=== PATIENT | male | born 1930 | race African-American/Black ===

== ENCOUNTER 2017-06-08 11:43 | Inpatient (IN) | payer MEDICARE, MEDICAID ==
[~2017-06-08] VITALS: Ht 182.9 cm; Wt 108.9 kg
[2017-06-08 14:47] LABS: HEMATOCRIT. 26.1 % (42.0-52.0); HEMOGLOBIN. 8.4 g/dL (14.0-18.0); MEAN CORPUSCULAR HEMOGLOBIN 28.9 pg (28.0-32.0); MEAN CORPUSCULAR VOLUME 90.3 fL (80.0-94.0); MEAN PLATELET VOLUME 9.1 fl (7.4-10.4); PLATELET 188 x1000/uL (130-400); RED BLOOD CELL COUNT 2.89 mill/uL (4.7-6.1)
[2017-06-08 14:55] LABS: CHLORIDE 111 mEq/L (98-107); INR 1.1; PROTHROMBIN TIME 11.9 sec (9.4-11.6)
[2017-06-08 15:01] LABS: CARBON DIOXIDE 21 mEq/L (21-32)
[2017-06-08 15:03] LABS: TROPONIN I 0.36 ng/mL (0.00-0.04)
[2017-06-08 15:53] LABS: PLATELET ESTIMATE NORMAL
[2017-06-08] MEDS ORDERED: FUROSEMIDE 40MG/4ML VIAL IVP ONE (16:00)
[2017-06-08] MEDS ORDERED: ASPIRIN 81MG TABLET PO ONE (16:00)
[2017-06-08] MEDS ORDERED: IPRATROPIUM/ALBUTEROL 0.5-3(2.5)MG/3ML NEB INH PRN (18:00)
[2017-06-08] MEDS ORDERED: LORAZEPAM 0.5MG TABLET PO PRN (18:00)
[2017-06-08] MEDS ORDERED: ONDANSETRON HCL 4MG/2ML VIAL IV PRN (18:00)
[2017-06-08] MEDS ORDERED: CLONIDINE 0.1MG TABLET PO PRN (18:00)
[2017-06-08] MEDS ORDERED: ACETAMINOPHEN 325MG TABLET PO PRN (18:00)
[2017-06-08] MEDS ORDERED: DOCUSATE SODIUM 100MG CAPSULE PO PRN (18:00)
[2017-06-08 20:45] VITALS: BP 155/83
[2017-06-08 22:45] LABS: CLARITY URINE CLEAR (CLEAR); COLOR URINE YELLOW (YELLOW); GLUCOSE URINE NEGATIVE (NEGATIVE); KETONES URINE NEGATIVE (NEGATIVE); LEUKOCYTE ESTERASE URINE NEGATIVE (NEGATIVE); NITRITE URINE NEGATIVE (NEGATIVE); OCCULT BLOOD URINE TRACE (NEGATIVE); PROTEIN URINE NEGATIVE (NEGATIVE); UROBILINOGEN URINE 0.2 E.U./dL (0.2-1.0)
[2017-06-08 22:56] LABS: *AMPHETAMINES SCREEN URINE NEGATIVE (NEGATIVE); *BARBITURATES SCREEN URINE NEGATIVE (NEGATIVE); *BENZODIAZEPINES SCREEN URINE NEGATIVE (NEGATIVE); *COCAINE SCREEN URINE NEGATIVE (NEGATIVE); CANNABINOID URINE SCREEN NEGATIVE (NEGATIVE); METHADONE URINE SCREEN NEGATIVE (NEGATIVE); OPIATES URINE SCREEN NEGATIVE (NEGATIVE); PHENCYCLIDINE URINE SCREEN NEGATIVE (NEGATIVE)
[2017-06-08 23:38] LABS: CREATINE KINASE MB FRACTION 5.1 ng/mL (0.5-3.6); TROPONIN I 0.35 ng/mL (0.00-0.04)
[2017-06-09] VITALS (7 sets, daily range): BP systolic 116–147; BP diastolic 60–79
[2017-06-09] MEDS: METHYLPREDNISOLONE SOD SUCC 125 MG/2 ML VIAL IV SCH ×4 (00:12→21:15)
[2017-06-09] MEDS: PIPERACILLIN/TAZ 2.25G PREMIX 50 ML IV SCH ×3 (00:12→13:53)
[2017-06-09] MEDS: ENOXAPARIN 40MG/0.4ML SYR SUBCUT SCH ×2 (09:00→09:40)
[2017-06-09] MEDS: FUROSEMIDE 40MG/4ML VIAL IVP SCH (09:40)
[2017-06-09 11:32] LABS: HEMATOCRIT. 27.8 % (42.0-52.0); HEMOGLOBIN. 9.1 g/dL (14.0-18.0); MEAN CORPUSCULAR HEMOGLOBIN 29.3 pg (28.0-32.0); MEAN CORPUSCULAR VOLUME 89.5 fL (80.0-94.0); MEAN PLATELET VOLUME 9.8 fl (7.4-10.4); PLATELET 200 x1000/uL (130-400); RED BLOOD CELL COUNT 3.11 mill/uL (4.7-6.1)
[2017-06-09 12:05] LABS: CARBON DIOXIDE 20 mEq/L (21-32); CHLORIDE 109 mEq/L (98-107); CREATINE KINASE 393 IU/L (39-308); CREATINE KINASE MB FRACTION 4.7 ng/mL (0.5-3.6); LDL CHOLESTEROL 41 mg/dL (5-100); T4 FREE 1.44 ng/dL (0.76-1.46)
[2017-06-09 12:06] LABS: HDL CHOLESTEROL 27 mg/dL (40-59)
[2017-06-09] MEDS: LOSARTAN POTASSIUM 25 MG TABLET PO SCH (13:53)
[2017-06-09 16:38] LABS: PLATELET ESTIMATE NORMAL
[2017-06-09] MEDS: CARVEDILOL 3.125 MG TABLET PO SCH (21:15)
[2017-06-09] MEDS: PIPERACILLIN/TAZ 3.375G PREMIX 50 ML IV SCH (21:15)
[2017-06-10 00:19] VITALS: BP_SYST 135; BP_SYST 91; BP_DIAS 49; BP_DIAS 73
[2017-06-10 04:00] VITALS: BP 134/73
[2017-06-10] MEDS: METHYLPREDNISOLONE SOD SUCC 125 MG/2 ML VIAL IV SCH ×2 (05:26→14:30)
[2017-06-10] MEDS: PIPERACILLIN/TAZ 3.375G PREMIX 50 ML IV SCH ×3 (05:26→21:36)
[2017-06-10 08:00] VITALS: BP 135/53
[2017-06-10] MEDS: LOSARTAN POTASSIUM 25 MG TABLET PO SCH (08:39)
[2017-06-10] MEDS: ALLOPURINOL 300 MG TABLET PO SCH (08:39)
[2017-06-10] MEDS: ASPIRIN 81MG TABLET PO SCH (08:39)
[2017-06-10] MEDS: CARVEDILOL 3.125 MG TABLET PO SCH ×2 (08:39→21:35)
[2017-06-10] MEDS: FUROSEMIDE 40MG/4ML VIAL IVP SCH (08:39)
[2017-06-10] MEDS: ENOXAPARIN 40MG/0.4ML SYR SUBCUT SCH (08:40)
[2017-06-10] MEDS: CLOPIDOGREL 75MG TABLET PO SCH (12:08)
[2017-06-10 16:00] VITALS: BP 142/78
[2017-06-10 20:00] VITALS: BP 141/88
[2017-06-10] MEDS: ATORVASTATIN CALCIUM 40MG TABLET PO SCH (21:35)
[2017-06-10] MEDS: METHYLPREDNISOLONE SOD SUCC 40 MG/ML VIAL IV SCH (21:36)
[2017-06-10] MEDS: DICLOFENAC SODIUM 50MG EC TABLET PO SCH (21:37)
[2017-06-11] VITALS: BP 140/72
[2017-06-11 04:00] VITALS: BP 153/66
[2017-06-11] MEDS: PIPERACILLIN/TAZ 3.375G PREMIX 50 ML IV SCH ×3 (05:41→21:13)
[2017-06-11 06:53] LABS: HEMATOCRIT. 27.2 % (42.0-52.0); HEMOGLOBIN. 8.8 g/dL (14.0-18.0); MEAN CORPUSCULAR VOLUME 89.8 fL (80.0-94.0); MEAN PLATELET VOLUME 9.6 fl (7.4-10.4); PLATELET 195 x1000/uL (130-400); RED BLOOD CELL COUNT 3.03 mill/uL (4.7-6.1)
[2017-06-11 08:00] VITALS: BP 115/76
[2017-06-11] MEDS: METHYLPREDNISOLONE SOD SUCC 40 MG/ML VIAL IV SCH ×2 (08:34→21:13)
[2017-06-11] MEDS: ALLOPURINOL 300 MG TABLET PO SCH (08:34)
[2017-06-11] MEDS: LOSARTAN POTASSIUM 25 MG TABLET PO SCH (08:34)
[2017-06-11] MEDS: CLOPIDOGREL 75MG TABLET PO SCH (08:34)
[2017-06-11] MEDS: ASPIRIN 81MG TABLET PO SCH (08:35)
[2017-06-11] MEDS: ENOXAPARIN 40MG/0.4ML SYR SUBCUT SCH (08:35)
[2017-06-11] MEDS: DICLOFENAC SODIUM 50MG EC TABLET PO SCH (08:35)
[2017-06-11] MEDS: FUROSEMIDE 40MG/4ML VIAL IVP SCH (08:35)
[2017-06-11] MEDS: CARVEDILOL 3.125 MG TABLET PO SCH ×2 (08:36→21:13)
[2017-06-11] MEDS: SODIUM CHLORIDE 0.9% 500 ML IV SCH ×2 (09:32→18:39)
[2017-06-11 12:00] VITALS: BP 142/73
[2017-06-11 16:00] VITALS: BP 126/81
[2017-06-11 17:15] LABS: PLATELET ESTIMATE NORMAL
[2017-06-11 20:00] VITALS: BP 138/67
[2017-06-11] MEDS: ATORVASTATIN CALCIUM 40MG TABLET PO SCH (21:13)
[2017-06-12] VITALS: BP 128/74
[2017-06-12 04:00] VITALS: BP 159/88
[2017-06-12] MEDS: PIPERACILLIN/TAZ 3.375G PREMIX 50 ML IV SCH ×3 (05:15→21:40)
[2017-06-12 08:00] VITALS: BP 159/70
[2017-06-12] MEDS: ALLOPURINOL 300 MG TABLET PO SCH (08:32)
[2017-06-12] MEDS: CLOPIDOGREL 75MG TABLET PO SCH (08:32)
[2017-06-12] MEDS: ASPIRIN 81MG TABLET PO SCH (08:32)
[2017-06-12] MEDS: CARVEDILOL 3.125 MG TABLET PO SCH ×2 (08:32→21:38)
[2017-06-12] MEDS: METHYLPREDNISOLONE SOD SUCC 40 MG/ML VIAL IV SCH ×2 (08:33→21:40)
[2017-06-12] MEDS: ENOXAPARIN 40MG/0.4ML SYR SUBCUT SCH (08:33)
[2017-06-12 09:30] LABS: HEMATOCRIT. 28.2 % (42.0-52.0); HEMOGLOBIN. 9.2 g/dL (14.0-18.0); MEAN CORPUSCULAR HEMOGLOBIN 29.2 pg (28.0-32.0); MEAN PLATELET VOLUME 9.9 fl (7.4-10.4); PLATELET 193 x1000/uL (130-400); RED BLOOD CELL COUNT 3.14 mill/uL (4.7-6.1); RED CELL DISTRIBUTION WIDTH 13.6 % (11.6-14.6)
[2017-06-12 10:17] LABS: PLATELET ESTIMATE NORMAL
[2017-06-12 12:00] VITALS: BP 145/80
[2017-06-12] MEDS: SODIUM CHLORIDE 0.9% 500 ML IV SCH (12:29)
[2017-06-12 16:00] VITALS: BP 141/87
[2017-06-12 20:00] VITALS: BP 145/82
[2017-06-12] MEDS: ATORVASTATIN CALCIUM 40MG TABLET PO SCH (21:38)
[2017-06-13] VITALS: BP 156/78
[2017-06-13] MEDS: SODIUM CHLORIDE 0.9% 500 ML IV SCH ×3 (01:30→10:55)
[2017-06-13 04:00] VITALS: BP 136/66
[2017-06-13] MEDS: PIPERACILLIN/TAZ 3.375G PREMIX 50 ML IV SCH ×2 (06:06→13:56)
[2017-06-13 06:49] LABS: HEMATOCRIT. 28.9 % (42.0-52.0); HEMOGLOBIN. 9.4 g/dL (14.0-18.0); MEAN CORPUSCULAR HEMOGLOBIN 28.9 pg (28.0-32.0); MEAN CORPUSCULAR VOLUME 88.6 fL (80.0-94.0); MEAN PLATELET VOLUME 9.4 fl (7.4-10.4); PLATELET 196 x1000/uL (130-400); RED BLOOD CELL COUNT 3.26 mill/uL (4.7-6.1); RED CELL DISTRIBUTION WIDTH 13.8 % (11.6-14.6)
[2017-06-13 08:30] VITALS: BP 119/82
[2017-06-13] MEDS: METHYLPREDNISOLONE SOD SUCC 40 MG/ML VIAL IV SCH (10:52)
[2017-06-13] MEDS: ALLOPURINOL 300 MG TABLET PO SCH (10:52)
[2017-06-13] MEDS: ASPIRIN 81MG TABLET PO SCH (10:53)
[2017-06-13] MEDS: CARVEDILOL 3.125 MG TABLET PO SCH (10:53)
[2017-06-13] MEDS: CLOPIDOGREL 75MG TABLET PO SCH (10:53)
[2017-06-13] MEDS: ENOXAPARIN 40MG/0.4ML SYR SUBCUT SCH (10:54)
[2017-06-13 11:52] LABS: PLATELET ESTIMATE NORMAL
[2017-06-13 12:00] VITALS: BP 142/79
[2017-06-13 15:40] VITALS: BP 142/79
[2017-06-13 16:00] VITALS: BP 159/87
== END 2017-06-13 16:30 | DRG 280 ==
LOC: ER 13:18 → 7WST 16:07 → ENRESERV 19:13 → 7WST 06-12 13:06
PROVIDERS: ADMIT Internal Medicine Critical Care Medicine; ATTEND Internal Medicine Critical Care Medicine
DX: I21.3 ST elevation (STEMI) myocardial infarction of unspecified site (principal); I50.43 Acute on chronic combined systolic (congestive) and diastolic (congestive) heart failure; N17.9 Acute kidney failure, unspecified; E46 Unspecified protein-calorie malnutrition; E11.22 Type 2 diabetes mellitus with diabetic chronic kidney disease; E66.01 Morbid (severe) obesity due to excess calories; I42.9 Cardiomyopathy, unspecified; I13.0 Hypertensive heart and chronic kidney disease with heart failure and stage 1 through stage 4 chronic kidney disease, or unspecified chronic kidney disease; E11.51 Type 2 diabetes mellitus with diabetic peripheral angiopathy without gangrene; I27.2 Other secondary pulmonary hypertension; M10.9 Gout, unspecified; Z53.29 Procedure and treatment not carried out because of patient's decision for other reasons; I25.10 Atherosclerotic heart disease of native coronary artery without angina pectoris; N18.9 Chronic kidney disease, unspecified; E78.5 Hyperlipidemia, unspecified; D64.9 Anemia, unspecified; D72.829 Elevated white blood cell count, unspecified; T50.2X5A Adverse effect of carbonic-anhydrase inhibitors, benzothiadiazides and other diuretics, initial encounter; I25.2 Old myocardial infarction; Z83.3 Family history of diabetes mellitus; Z95.0 Presence of cardiac pacemaker; Z68.32 Body mass index [BMI] 32.0-32.9, adult; Z84.1 Family history of disorders of kidney and ureter; Y92.89 Other specified places as the place of occurrence of the external cause
CPT/HCPCS: 36415; 71010; 78582; 80048; 80053; 80061; 80305; 81001; 82550; 82553; 83036; 83880; 84439; 84443; 84484; 84550; 85025; 85379; 85610; 87015; 87045; 87427; 87449; 93005; 93306; 93923; 97110; 97116; 97162; 97530; 99285; A9558; J1650; J1940; J2543; J2920; J2930; J7030; J7040; J7050

== ENCOUNTER 2017-06-13 17:05 | Inpatient (IN) | payer MEDICARE, MEDICAID ==
[~2017-06-13] VITALS: Ht 182.9 cm; Wt 108.9 kg
[2017-06-13 17:52] VITALS: BP 159/86
[2017-06-13 18:00] VITALS: BP 159/86
[2017-06-13] MEDS ORDERED: CLONIDINE 0.1MG TABLET PO PRN (18:00)
[2017-06-13] MEDS ORDERED: DOCUSATE SODIUM 100MG CAPSULE PO PRN (18:00)
[2017-06-13] MEDS ORDERED: LORAZEPAM 0.5MG TABLET PO PRN (18:00)
[2017-06-13] MEDS ORDERED: ONDANSETRON 4MG ODT PO PRN (18:00)
[2017-06-13] MEDS ORDERED: ACETAMINOPHEN 325MG TABLET PO PRN (18:00)
[2017-06-13] MEDS ORDERED: IPRATROPIUM/ALBUTEROL 0.5-3(2.5)MG/3ML NEB HHN PRN (18:00)
[2017-06-13] MEDS: ATORVASTATIN CALCIUM 40MG TABLET PO SCH (20:58)
[2017-06-13] MEDS: CARVEDILOL 3.125 MG TABLET PO SCH (21:00)
[2017-06-14 08:00] VITALS: BP 154/79
[2017-06-14] MEDS ORDERED: PREDNISONE 20MG TABLET PO SCH (09:00)
[2017-06-14] MEDS: CLOPIDOGREL 75MG TABLET PO SCH (09:13)
[2017-06-14] MEDS: CARVEDILOL 3.125 MG TABLET PO SCH ×2 (09:13→21:21)
[2017-06-14] MEDS: ALLOPURINOL 300 MG TABLET PO SCH (09:13)
[2017-06-14] MEDS: ASPIRIN 81MG TABLET PO SCH (09:13)
[2017-06-14] MEDS: ENOXAPARIN 40MG/0.4ML SYR SUBCUT SCH (09:15)
[2017-06-14 20:00] VITALS: BP 152/79
[2017-06-14] MEDS: ATORVASTATIN CALCIUM 40MG TABLET PO SCH (21:24)
[2017-06-14] MEDS ORDERED: LORAZEPAM 0.5MG TABLET PO PRN (23:07)
[2017-06-15 08:00] VITALS: BP 162/87
[2017-06-15] MEDS: ENOXAPARIN 40MG/0.4ML SYR SUBCUT SCH (09:16)
[2017-06-15] MEDS: CLOPIDOGREL 75MG TABLET PO SCH (09:16)
[2017-06-15] MEDS: ASPIRIN 81MG TABLET PO SCH (09:16)
[2017-06-15] MEDS: ALLOPURINOL 300 MG TABLET PO SCH (09:16)
[2017-06-15] MEDS: CARVEDILOL 3.125 MG TABLET PO SCH ×2 (09:16→22:25)
[2017-06-15 19:00] VITALS: BP 138/70
[2017-06-15] MEDS: ATORVASTATIN CALCIUM 40MG TABLET PO SCH (22:25)
[2017-06-16 04:29] LABS: BG BASE EXCESS -8.1 mmol/L (-2.0-2.0); BG CARBOXYHEMOGLOBIN 1.2 % (0.5-1.5); BG DEOXYHEMOGLOBIN 0.6 % (0.0-5.0); BG FRACTION INSPIRED OXYGEN 100; BG HCO3 ACT 17.6 mmol/L (22.0-26.0); BG METHEMOGLOBIN 1.6 % (0.0-1.5); BG OXYGEN SATURATION 99.4 % (92.0-98.5); BG OXYHEMOGLOBIN 96.6 % (94.0-97.0); BG PCO2 36.6 mmHg (35.0-45.0); BG PH 7.299 (7.350-7.450); BG PO2 346.2 mmHg (75.0-100.0); BG SAMPLE SITE LEFT RADIAL; BG TOTAL HEMOGLOBIN 11.7 g/dL (12.0-18.0); BG VENT MODE MASK - NRB
[2017-06-16] MEDS ORDERED: DEXT 5%/0.45% NACL 1000ML 1,000 ML IV SCH (04:45)
== END 2017-06-16 04:45 | disposition short-term general hospital (02) | DRG 553 ==
LOC: UNDOADMIN 17:05
PROVIDERS: ADMIT Psychiatry & Neurology Neurology; ATTEND Internal Medicine Critical Care Medicine
DX: M10.20 Drug-induced gout, unspecified site (principal); I50.43 Acute on chronic combined systolic (congestive) and diastolic (congestive) heart failure; N17.9 Acute kidney failure, unspecified; E46 Unspecified protein-calorie malnutrition; I27.2 Other secondary pulmonary hypertension; E66.01 Morbid (severe) obesity due to excess calories; L97.919 Non-pressure chronic ulcer of unspecified part of right lower leg with unspecified severity; I13.0 Hypertensive heart and chronic kidney disease with heart failure and stage 1 through stage 4 chronic kidney disease, or unspecified chronic kidney disease; J44.9 Chronic obstructive pulmonary disease, unspecified; D64.9 Anemia, unspecified; D72.829 Elevated white blood cell count, unspecified; I25.10 Atherosclerotic heart disease of native coronary artery without angina pectoris; E78.5 Hyperlipidemia, unspecified; G89.29 Other chronic pain; I25.2 Old myocardial infarction; I73.9 Peripheral vascular disease, unspecified; I87.2 Venous insufficiency (chronic) (peripheral); M79.7 Fibromyalgia; M81.0 Age-related osteoporosis without current pathological fracture; N18.9 Chronic kidney disease, unspecified; M19.90 Unspecified osteoarthritis, unspecified site; T50.2X5A Adverse effect of carbonic-anhydrase inhibitors, benzothiadiazides and other diuretics, initial encounter; R26.9 Unspecified abnormalities of gait and mobility; M54.5 Low back pain; K59.00 Constipation, unspecified; Z68.32 Body mass index [BMI] 32.0-32.9, adult; Z82.49 Family history of ischemic heart disease and other diseases of the circulatory system; Z83.3 Family history of diabetes mellitus; Z95.0 Presence of cardiac pacemaker; Y92.89 Other specified places as the place of occurrence of the external cause; Z82.61 Family history of arthritis
CPT/HCPCS: 36415; 36600; 80048; 82375; 82805; 82962; 97116; 97162; 97166; 97530; 97535; J1650; J7512; A4315

== ENCOUNTER 2017-06-16 04:40 | Inpatient (IN) | payer MEDICARE, MEDICAID ==
[2017-06-16] VITALS (61 sets, daily range): BP systolic 3–170; BP diastolic 1–103
[~2017-06-16] VITALS: Ht 180.3 cm; Wt 107.5 kg
[2017-06-16] MEDS ORDERED: PROPOFOL 10MG/ML 100ML 100 ML IV PRN (06:00)
[2017-06-16] MEDS ORDERED: DILTIAZEM HCL 5MG/ML 5ML VIAL IV SCH (06:00)
[2017-06-16 06:03] LABS: BASOPHILS % 0.2 % (0.0-2.0); EOSINOPHILS % 0.5 % (0.0-5.0); HEMATOCRIT. 32.4 % (42.0-52.0); HEMOGLOBIN. 10.4 g/dL (14.0-18.0); LYMPHOCYTES % 11.9 % (20.0-50.0); MEAN CORPUSCULAR HEMOGLOBIN 29.2 pg (28.0-32.0); MEAN CORPUSCULAR VOLUME 90.9 fL (80.0-94.0); MEAN PLATELET VOLUME 10.6 fl (7.4-10.4); MONOCYTES % 13.2 % (2.0-8.0); NEUTROPHILS % 74.2 % (40.0-76.0); PLATELET 248 x1000/uL (130-400); RED BLOOD CELL COUNT 3.56 mill/uL (4.7-6.1)
[2017-06-16 06:35] LABS: BG BASE EXCESS -7.4 mmol/L (-2.0-2.0); BG CARBOXYHEMOGLOBIN 0.3 % (0.5-1.5); BG DEOXYHEMOGLOBIN 0.8 % (0.0-5.0); BG FRACTION INSPIRED OXYGEN 100; BG HCO3 ACT 17.4 mmol/L (22.0-26.0); BG METHEMOGLOBIN 0.4 % (0.0-1.5); BG OXYGEN SATURATION 99.2 % (92.0-98.5); BG OXYHEMOGLOBIN 98.5 % (94.0-97.0); BG PCO2 32.6 mmHg (35.0-45.0); BG PH 7.344 (7.350-7.450); BG PO2 509.3 mmHg (75.0-100.0); BG SAMPLE SITE RIGHT RADIAL; BG TIDAL VOLUME(mL) 600 mL; BG TOTAL HEMOGLOBIN 11.4 g/dL (12.0-18.0); BG VENT MODE VENT - A/C; BG VENT RATE 14 set
[2017-06-16] MEDS ORDERED: DEXAMETHASONE 10 MG/ML VIAL IV SCH (06:45)
[2017-06-16] MEDS ORDERED: GELATIN SPONGE,ABSORBABLE SZ 100 ONE (07:36)
[2017-06-16] MEDS ORDERED: BACITRACIN ZINC 15GM TUBE TOP ONE (07:37)
[2017-06-16] MEDS ORDERED: THROMBIN (BOVINE) 5000 UNITS/VIAL TOP ONE (07:37)
[2017-06-16] MEDS ORDERED: POVIDONE-IODINE OINT 28.4GM TOP ONE (07:37)
[2017-06-16] MEDS ORDERED: BACITRACIN 50,000 UNITS/VIAL ONE (07:38)
[2017-06-16] MEDS ORDERED: LIDOCAINE HCL 1%/EPI 1:200,000 30 ML VIAL ONE (07:38)
[2017-06-16] MEDS ORDERED: NORMAL SALINE 0.9% 10 ML SYR ONE (07:38)
[2017-06-16 07:48] LABS: INR 1.1; PARTIAL THROMBOPLASTIN TIME 27.5 sec (23.4-31.0); PROTHROMBIN TIME 11.6 sec (9.4-11.6)
[2017-06-16] MEDS ORDERED: NICARDIPINE 50 MG in SODIUM CHLORIDE 0.9% 230 ML IV PRN (08:15)
[2017-06-16] MEDS ORDERED: NICARDIPINE 100 MG in SODIUM CHLORIDE 0.9% 60 ML IV PRN (08:30)
[2017-06-16 08:52] LABS: BG BASE EXCESS -6.2 mmol/L (-2.0-2.0); BG CARBOXYHEMOGLOBIN 0.3 % (0.5-1.5); BG DEOXYHEMOGLOBIN 1.2 % (0.0-5.0); BG FRACTION INSPIRED OXYGEN 50; BG HCO3 ACT 18.4 mmol/L (22.0-26.0); BG METHEMOGLOBIN 0.6 % (0.0-1.5); BG OXYGEN SATURATION 98.8 % (92.0-98.5); BG OXYHEMOGLOBIN 97.9 % (94.0-97.0); BG PCO2 33.3 mmHg (35.0-45.0); BG PO2 238.8 mmHg (75.0-100.0); BG SAMPLE SITE RIGHT BRACHIAL; BG TIDAL VOLUME(mL) 600 mL; BG TOTAL HEMOGLOBIN 10.7 g/dL (12.0-18.0); BG VENT MODE VENT - A/C; BG VENT RATE 14 set
[2017-06-16] MEDS ORDERED: ALBUMIN HUMAN 12.5G/250ML (5%) IV ONE (09:19)
[2017-06-16] MEDS ORDERED: ALBUMIN HUMAN 12.5GM/50ML (25%) IV ONE (09:23)
[2017-06-16] MEDS ORDERED: PANTOPRAZOLE SODIUM 40 MG/VIAL IV NR (11:00)
[2017-06-16 12:58] LABS: T4 FREE 1.46 ng/dL (0.76-1.46)
[2017-06-16] MEDS: DEXT 5%/LACTATED RINGERS 1,000 ML IV SCH (13:12)
[2017-06-16] MEDS ORDERED: CEFAZOLIN SODIUM 1000MG/VIAL IV SCH (14:00)
[2017-06-16] MEDS: NOREPINEPHRINE 8 MG in DEXT 5% WATER 242 ML IV PRN (14:48)
[2017-06-16] MEDS: PHENYTOIN SODIUM 100MG/2ML VIAL IV SCH ×2 (14:54→21:31)
[2017-06-16] MEDS: CEFAZOLIN 1000MG PREMIX 50 ML IV SCH ×2 (14:55→20:15)
[2017-06-16 15:10] LABS: CREATINE KINASE MB FRACTION 6.4 ng/mL (0.5-3.6); TROPONIN I 0.24 ng/mL (0.00-0.04)
[2017-06-16 17:08] LABS: BG BASE EXCESS -4.9 mmol/L (-2.0-2.0); BG CARBOXYHEMOGLOBIN 0.3 % (0.5-1.5); BG DEOXYHEMOGLOBIN 0.8 % (0.0-5.0); BG HCO3 ACT 17.6 mmol/L (22.0-26.0); BG METHEMOGLOBIN 0.2 % (0.0-1.5); BG OXYGEN SATURATION 99.2 % (92.0-98.5); BG OXYHEMOGLOBIN 98.7 % (94.0-97.0); BG PCO2 24.3 mmHg (35.0-45.0); BG PH 7.477 (7.350-7.450); BG PO2 259.4 mmHg (75.0-100.0); BG SAMPLE SITE RIGHT BRACHIAL; BG TIDAL VOLUME(mL) 600 mL; BG TOTAL HEMOGLOBIN 9.3 g/dL (12.0-18.0); BG VENT MODE VENT - A/C; BG VENT RATE 14 set
[2017-06-16 19:12] LABS: HEMATOCRIT. 25.7 % (42.0-52.0); HEMOGLOBIN. 8.2 g/dL (14.0-18.0); MEAN CORPUSCULAR HEMOGLOBIN 28.4 pg (28.0-32.0); MEAN CORPUSCULAR VOLUME 89.3 fL (80.0-94.0); MEAN PLATELET VOLUME 9.7 fl (7.4-10.4); PLATELET 157 x1000/uL (130-400); RED BLOOD CELL COUNT 2.87 mill/uL (4.7-6.1); RED CELL DISTRIBUTION WIDTH 13.6 % (11.6-14.6)
[2017-06-16 19:17] LABS: INR 1.2; PROTHROMBIN TIME 12.3 sec (9.4-11.6)
[2017-06-16 19:27] LABS: CARBON DIOXIDE 19 mEq/L (21-32); CHLORIDE 113 mEq/L (98-107); PHOSPHORUS 2.7 mg/dL (2.5-4.9)
[2017-06-16 19:47] LABS: PLATELET ESTIMATE NORMAL
[2017-06-16 23:46] LABS: CREATINE KINASE MB FRACTION 7.6 ng/mL (0.5-3.6); TROPONIN I 0.25 ng/mL (0.00-0.04)
[2017-06-17] VITALS (96 sets, daily range): BP systolic 5–272; BP diastolic 2–272
[2017-06-17] MEDS: DEXT 5%/LACTATED RINGERS 1,000 ML IV SCH ×2 (00:49→17:54)
[2017-06-17] MEDS: CEFAZOLIN 1000MG PREMIX 50 ML IV SCH (03:20)
[2017-06-17] MEDS: PHENYTOIN SODIUM 100MG/2ML VIAL IV SCH ×3 (05:08→22:19)
[2017-06-17 05:42] LABS: HEMOGLOBIN. 8.6 g/dL (14.0-18.0); MEAN CORPUSCULAR HEMOGLOBIN 28.4 pg (28.0-32.0); MEAN CORPUSCULAR VOLUME 89.3 fL (80.0-94.0); MEAN PLATELET VOLUME 10.5 fl (7.4-10.4); PLATELET 148 x1000/uL (130-400); RED BLOOD CELL COUNT 3.02 mill/uL (4.7-6.1)
[2017-06-17 05:44] LABS: INR 1.3; PROTHROMBIN TIME 13.1 sec (9.4-11.6)
[2017-06-17 06:33] LABS: CARBON DIOXIDE 19 mEq/L (21-32); CHLORIDE 116 mEq/L (98-107); CREATINE KINASE 95 IU/L (39-308); PHOSPHORUS 1.5 mg/dL (2.5-4.9)
[2017-06-17 06:34] LABS: CREATINE KINASE MB FRACTION 8.9 ng/mL (0.5-3.6); TROPONIN I 0.21 ng/mL (0.00-0.04)
[2017-06-17 07:12] LABS: PLATELET ESTIMATE NORMAL
[2017-06-17 08:38] LABS: BG BASE EXCESS -3.1 mmol/L (-2.0-2.0); BG CARBOXYHEMOGLOBIN 0.3 % (0.5-1.5); BG DEOXYHEMOGLOBIN 0.7 % (0.0-5.0); BG FRACTION INSPIRED OXYGEN 100; BG HCO3 ACT 17.8 mmol/L (22.0-26.0); BG METHEMOGLOBIN 0.3 % (0.0-1.5); BG OXYGEN SATURATION 99.3 % (92.0-98.5); BG OXYHEMOGLOBIN 98.7 % (94.0-97.0); BG PH 7.568 (7.350-7.450); BG PO2 518.6 mmHg (75.0-100.0); BG SAMPLE SITE RIGHT RADIAL; BG TIDAL VOLUME(mL) 600 mL; BG TOTAL HEMOGLOBIN 8.7 g/dL (12.0-18.0); BG VENT MODE VENT - A/C; BG VENT RATE 14 set
[2017-06-17] MEDS: PANTOPRAZOLE SODIUM 40 MG/VIAL IV SCH (09:16)
[2017-06-17 15:59] LABS: CLARITY URINE CLEAR (CLEAR); COLOR URINE YELLOW (YELLOW); GLUCOSE URINE NEGATIVE (NEGATIVE); KETONES URINE NEGATIVE (NEGATIVE); LEUKOCYTE ESTERASE URINE NEGATIVE (NEGATIVE); NITRITE URINE NEGATIVE (NEGATIVE); OCCULT BLOOD URINE TRACE (NEGATIVE); PROTEIN URINE 1+ (NEGATIVE); SPECIFIC GRAVITY URINE 1.021 (1.005-1.030); UROBILINOGEN URINE 0.2 E.U./dL (0.2-1.0)
[2017-06-17 17:22] LABS: CHLORIDE 118 mEq/L (98-107)
[2017-06-17 17:25] LABS: CARBON DIOXIDE 24 mEq/L (21-32)
[2017-06-17 17:29] LABS: PHOSPHORUS 2.3 mg/dL (2.5-4.9)
[2017-06-17] MEDS: NOREPINEPHRINE 8 MG in DEXT 5% WATER 242 ML IV PRN (17:54)
[2017-06-17 18:26] LABS: BG BASE EXCESS -4.2 mmol/L (-2.0-2.0); BG CARBOXYHEMOGLOBIN 0.3 % (0.5-1.5); BG DEOXYHEMOGLOBIN 1.4 % (0.0-5.0); BG FRACTION INSPIRED OXYGEN 40; BG HCO3 ACT 19.6 mmol/L (22.0-26.0); BG METHEMOGLOBIN 0.3 % (0.0-1.5); BG OXYGEN SATURATION 98.6 % (92.0-98.5); BG PCO2 31.2 mmHg (35.0-45.0); BG PH 7.416 (7.350-7.450); BG SAMPLE SITE RIGHT BRACHIAL; BG TIDAL VOLUME(mL) 550 mL; BG TOTAL HEMOGLOBIN 9.8 g/dL (12.0-18.0); BG VENT MODE VENT - A/C; BG VENT RATE 12 set
[2017-06-18] VITALS (86 sets, daily range): BP systolic 7–143; BP diastolic 3–100
[2017-06-18] MEDS: PHENYTOIN SODIUM 100MG/2ML VIAL IV SCH ×2 (05:23→14:50)
[2017-06-18] MEDS: PANTOPRAZOLE SODIUM 40 MG/VIAL IV SCH (08:55)
[2017-06-18] MEDS: DEXT 5%/LACTATED RINGERS 1,000 ML IV SCH (10:31)
[2017-06-18] MEDS: NOREPINEPHRINE 8 MG in DEXT 5% WATER 242 ML IV PRN (11:49)
== END 2017-06-18 22:29 | disposition expired | DRG 23 ==
LOC: CVICU 04:40 → MICUNO 06:10
PROVIDERS: ADMIT Internal Medicine Critical Care Medicine; ATTEND Internal Medicine Critical Care Medicine
PROC: 009400Z Drainage of Intracranial Subdural Space with Drainage Device, Open Approach (ICD-10-PCS; principal; 2017-06-16 08:00)
DX: I60.9 Nontraumatic subarachnoid hemorrhage, unspecified (principal); I50.43 Acute on chronic combined systolic (congestive) and diastolic (congestive) heart failure; J96.00 Acute respiratory failure, unspecified whether with hypoxia or hypercapnia; I21.3 ST elevation (STEMI) myocardial infarction of unspecified site; G93.40 Encephalopathy, unspecified; E87.0 Hyperosmolality and hypernatremia; N17.9 Acute kidney failure, unspecified; E66.01 Morbid (severe) obesity due to excess calories; I42.9 Cardiomyopathy, unspecified; E46 Unspecified protein-calorie malnutrition; I48.91 Unspecified atrial fibrillation; E87.2 Acidosis; I13.0 Hypertensive heart and chronic kidney disease with heart failure and stage 1 through stage 4 chronic kidney disease, or unspecified chronic kidney disease; L97.919 Non-pressure chronic ulcer of unspecified part of right lower leg with unspecified severity; I27.2 Other secondary pulmonary hypertension; I61.5 Nontraumatic intracerebral hemorrhage, intraventricular; D64.9 Anemia, unspecified; D72.829 Elevated white blood cell count, unspecified; E78.5 Hyperlipidemia, unspecified; G89.29 Other chronic pain; I25.10 Atherosclerotic heart disease of native coronary artery without angina pectoris; I73.9 Peripheral vascular disease, unspecified; M10.9 Gout, unspecified; N18.9 Chronic kidney disease, unspecified; T50.2X5A Adverse effect of carbonic-anhydrase inhibitors, benzothiadiazides and other diuretics, initial encounter; Z95.0 Presence of cardiac pacemaker; Z68.33 Body mass index [BMI] 33.0-33.9, adult; R40.2434 Glasgow coma scale score 3-8, 24 hours or more after hospital admission
CPT/HCPCS: 31500; 36415; 36600; 70450; 71010; 78615; 80048; 80053; 80061; 81001; 82375; 82550; 82553; 82805; 83036; 83605; 83735; 83880; 84100; 84439; 84443; 84478; 84484; 85025; 85379; 85610; 85730; 88304; 93005; 93306; 93970; 94002; 94003; A4216; A9512; C1713; C9113; J0690; J1100; J1165; J3490; J7060; J7121; P9041; P9047